=== PATIENT | male | born 1980 | race Two or more races ===

== ENCOUNTER 2018-10-23 09:28 | Day surgery (SDC) | payer BC ==
[~2018-10-23] VITALS: Ht 165.1 cm; Wt 61.2 kg
[2018-10-23] VITALS (10 sets, daily range): BP systolic 99–123; BP diastolic 59–73
[~2018-10-23 09:28] MED LIST: ALLEGRA ALLERGY60 M1 PO; FLONASE1 SPRAYS NASAL; ceFAZolin sod 1 GM in NS 55 ML IVPB ONE
[2018-10-23] MEDS ORDERED: TRUVADA1 TAB ORAL (10:04)
[2018-10-23] MEDS ORDERED: Betadine 10% Oint 30gm TOPIC ONE (10:32)
[2018-10-23] MEDS ORDERED: Lacri-Lube Opth Oint 3.5gm ONE (10:32)
[2018-10-23] MEDS ORDERED: Kenalog-40 1ml Vial ONE (10:32)
[2018-10-23] MEDS ORDERED: Cocaine HCl 4% 4ml vial TOPIC ONE (10:32)
[2018-10-23] MEDS ORDERED: Oxymetazoline 0.05% Na Spray 30ml NASAL ONE (10:33)
[2018-10-23] MEDS ORDERED: Lidocaine 1% 10mg/ml/EPI 0.01mg/ml 50ml INJ ONE ×2 (10:33→12:45)
[2018-10-23] MEDS ORDERED: Propofol 200mg/20ml IV ONE ×2 (11:06→11:08)
[2018-10-23] MEDS ORDERED: Rocuronium Bromide 50mg/5ml Inj IV ONE ×2 (11:06→12:58)
[2018-10-23] MEDS ORDERED: Midazolam 2mg/2ml Inj ONE ×2 (11:08→12:50)
[2018-10-23] MEDS ORDERED: fentaNYL 100 mcg/2 mL IV ONE ×3 (11:08→13:15)
[2018-10-23] MEDS ORDERED: Lidocaine 1% MPF 10mg/ml 5ml ONE (11:08)
[2018-10-23] MEDS ORDERED: Lidocaine 1% Plain 30 ml INJ ONE (11:17)
--- NOTE | 2018-10-23 11:40 | Anethesia Preoperative Eval ---
Anesthesia Pre-op PMH/ROS General Date of Evaluation: Oct 23, 2018 Time of Evaluation: 11:20 Anesthesiologist: Roxy Titus CRNA ASA Score: ASA 2 Mallampati Score Class I : Soft palate, uvula, fauces, pillars visible Class II: Soft palate, uvula, fauces visible Class III: Soft palate, base of uvula visible Class IV: Only hard plate visible Mallampati Classification: Class II Surgeon: Manpreet Diagnosis: deviated septum, (B) hypertrophied turbinate Surgical Procedure: Septoplasty, (B) tubinectomies, repair of left internal valve Family History: no anesthesia problems Allergies: Coded Allergies: No Known Allergies (Unverified , 10/23/18) Medications: see eMAR Patient NPO?: Yes NPO Date: Oct 23, 2018 NPO Time: 00:00 Past Medical History Cardiovascular: Denies: HTN, CAD, [place], valve dz, arrhythmia, other Pulmonary: Denies: asthma, COPD, JOHAN, other Gastrointestinal/Genitourinary: Denies: GERD, CRI, ESRD, other Neurologic/Psychiatric: Denies: dementia, CVA, depression/anxiety, TIA, other Endocrine: Reports: other - s/p parathyroidectomy, benign neck mass excision; allergic rhinitis, deviated septum; Denies: DM, hypothyroidism, steroids HEENT: Denies: cataract (L), cataract (R), glaucoma, BUCKLAND (L), BUCKLAND (R), other Hematology/Immune: Denies: anemia, DVT, bleeding disorder, other Musculoskeletal/Integumentary: Denies: OA, RA, DJD, DDD, edema, other PMH Narrative: as noted above PSxH Narrative: parathyroidectomy, neck mass excision Anesthesia Pre-op Phys. Exam Physician Exam Last Vital Signs Date Time Temp Pulse Resp B/P (MAP) Pulse Ox O2 Delivery O2 Flow Rate FiO2 10/23/18 09:56 97.9 54 18 99/59 100 Room Air Constitutional: NAD Neurologic: CN 2-12 intact Cardiovascular: RRR Respiratory: CTA Gastrointestinal: S/NT/ND Airway Exam Mallampati Score: Class II MO: full Neck: FROM TMD: > 3 FB Teeth: intact Dentures: no upper, no lower Anesthesia Pre-op A/P Labs see chart, reviewed Risk Assessment & Plan Assessment: ASA 2, ok to proceed Plan: GA Status Change Before Surgery: No Pre-Antibiotics Drug: Roxy Jimenez CRNA Oct 23, 2018 11:40
[2018-10-23] MEDS ORDERED: Hydromorphone 0.5mg/0.5ml inj IVP PRN (11:45)
--- NOTE | 2018-10-23 11:53 | Pre-Procedure Note/Attestation ---
Pre-Procedure Note/Attestation Complete Prior to Procedure Planned Procedure: not applicable Procedure Narrative: nasal obstruction unresponsive to medication Indications for Procedure Pre-Operative Diagnosis: septal deviation, bilateral hypertrophied inferior turbinates, obstructing nasal deformity, possible internal valve collapse Attestation I attest that I discussed the nature of the procedure; its benefits; risks and complications; and alternatives (and the risks and benefits of such alternatives ), prior to the procedure, with the patient (or the patient's legal hotel services sales representative). I attest that, if there was a reasonable possibility of needing a blood transfusion, the patient (or the patient's legal hotel services sales representative) was given the [facility] standardized written summary, pursuant to the Lars Brewerton Blood Safety Act ([place] Health and Safety Code # 1645, as amended). I attest that I re-evaluated the patient just prior to the surgery and that there has been no change in the patient's H&P, except as documented below: Marco Case MD Oct 23, 2018 11:53
[2018-10-23] MEDS ORDERED: Sterile Water Irrig 1000ml IRRIG ONE (12:00)
[2018-10-23] MEDS ORDERED: Neostigmine 1mg/ml 10ml Inj ONE (12:00)
[2018-10-23] MEDS ORDERED: Metoclopramide 10mg/2ml Inj ONE (12:00)
[2018-10-23] MEDS ORDERED: Dexamethasone 4mg/ml vial ONE (12:00)
[2018-10-23] MEDS ORDERED: Glycopyrrolate 0.2mg/ml 1ml Vial ONE ×2 (12:00→12:41)
[2018-10-23] MEDS ORDERED: NS Irrig 1000ml ONE (12:00)
[2018-10-23] MEDS ORDERED: LR 1000ml ONE (12:00)
--- NOTE | 2018-10-23 15:55 | Immediate Post-Op Evaluation ---
Immediate Post-Op Evalulation Immediate Post-Op Evalulation Procedure: Septoplasty, (B) turbinectomies, repair of LEFT internal valve Date of Evaluation: Oct 23, 2018 Time of Evaluation: 16:30 IV Fluids: LR 1800 ml Estimated Blood Loss: 40 ml Blood Pressure Systolic: 116 Blood Pressure Diastolic: 69 Pulse Rate: 116 Respiratory Rate: 24 O2 Sat by Pulse Oximetry: 98 Temperature (Fahrenheit): 99.4 Pain Score (1-10): 0 Nausea: No Vomiting: No Complications none Patient Status: awake, reacts, patent, extubated Hydration Status: adequate Drug: cefazolin 100 mg IV Given Within 1 Hr of Incision: Yes Time Given: 12:00 Roxy Titus CRNA Oct 23, 2018 15:55
--- NOTE | 2018-10-23 16:31 | Brief Operative Note ---
Immediate Post Operative Note Operative Note Pre-op Diagnosis: septal deviation, bilateral hypertrophied inferior turbinates, obstructing nasal deformity, possible internal valve collapse Procedure: septoplasty, bilateral inferior turbinectomies with intramural coagulation, repair of tension septum. and reconstruction of collapsed left internal valve Post-op Diagnosis: same as pre-op plus - tension septum Surgeon: Marco Case M.D. Anesthesiologist: Connie Anesthesia: MAC Specimen: yes - septum Complications: none Condition: stable Fluids: ringers lactate Estimated Blood Loss: minimal Drains: none Packing: [email or web address] Implant(s) used?: No Marco Case MD Oct 23, 2018 16:31
--- NOTE | 2018-10-23 16:42 | 48 Hour Post Anesthesia Eval ---
Post Anesthesia Evaluation Procedure: Septoplasty, (B) turbinectomies, repair of LEFT internal valve Date of Evaluation: Oct 23, 2018 Time of Evaluation: 16:41 Blood Pressure Systolic: 110 0: 73 Pulse Rate: 105 Respiratory Rate: 14 Temperature (Fahrenheit): 99.1 O2 Sat by Pulse Oximetry: 99 Airway: patent Nausea: No Vomiting: No Pain Intensity: 0 Hydration Status: adequate Cardiopulmonary Status: stable Mental Status/LOC: patient returned to baseline Follow-up Care/Observations: per ENT Post-Anesthesia Complications: None Follow-up care needed: N/A Roxy Titus CRNA Oct 23, 2018 16:42
--- NOTE | 2018-10-25 10:30 | Operative Note - Dictated ---
DATE OF OPERATION: 10/23/2018 SURGEON: Marco Case M.D. ANESTHESIOLOGIST: . Anesthesia: General PREOPERATIVE DIAGNOSES: 1. Septal deviation. 2. Bilateral hypertrophied inferior turbinates. 3. Obstructive nasal deformity. 4. Collapsed left internal valve. POSTOPERATIVE DIAGNOSES: 1. Septal deviation. 2. Bilateral hypertrophied inferior turbinates. 3. Obstructing tension septum. 4. Collapsed left internal valve. PROCEDURES: 1. Septoplasty. 2. Bilateral inferior turbinectomies with intramural coagulation. 3. Repair of obstructive tension septum deformity. 4. Repair of collapse left internal valve with rotation advancement flap. INDICATIONS FOR SURGERY: The patient is a 38-year-old male, who complains of nasal obstruction, unresponsive to medication. Examination revealed a significant tension septum causing narrowing of the nasal cavity anteriorly. Intranasally, the patient was found to have an S-shaped septal deviation with a right maxillary crest spur obstructing right nasal chamber and adjacent hypertrophied inferior turbinate. The left nasal cavity had a severe left septal deviation with the cartilaginous and bony septum overlapping a huge maxillary crest spur causing the septum to abut up against the hypertrophied left inferior turbinate. Further examination of the nasal cavity revealed collapse of the left internal valve. PROCEDURE IN DETAIL: The patient was brought to the operating room while premedicated and having received preoperative antibiotics. He was then placed in supine position on the operating room table. After the patient underwent successful endotracheal intubation, he was given intravenous sedation. The nasal cavity was sprayed with 0.25% Brian-Synephrine. Sterile Q-tip saturated with Betadine was used to sterilize the intranasal cavity. Approximately 30 mL of 1% Xylocaine with 1:100,000 epinephrine were used to inject the nasal and septal frameworks. It is of note that the patient had very thick indurated-like tissue, which made it very difficult to inject the septum. Plain gauze soaked with cocaine was used to pack the intranasal cavity. The patient was then prepped and draped in usual sterile fashion. After a suitable period of vasoconstriction, the packing was removed. A #15 blade was used to make the incision between the upper and lower lateral cartilage, carried to the septal angle and then along the left inferior aspect of the septum. Extensive undermining was performed and the periosteum was from the underlying bone. Bilateral junction tunnels was then accomplished and the upper lateral cartilage was released from the septum. A severe buckling of the the septal angle on the left side was causing significant obstruction. Releasing the upper lateral cartilage in this area allowed it to be mobilized in a more midline position. The tension septum was then taken down sharply. The left inferior septal incision was then continued and a left mucoperichondrial mucoperiosteal flap was elevated. An incision was made between the cartilage and bony septum and a right mucoperiosteal flap was elevated. The cartilagenous septum was from remaining attachments and removed from the field of operation. This allowed me to be able to view the more superior part of the nasal cavity and this portion on both sides was injected with approximately 5 mL of 1% Xylocaine with 1:100,000 epinephrine. After a suitable period of time had elapsed for vasoconstriction that portion of overriding and obstructing perpendicular plate of the ethmoid and vomer bone were incised throughout its attachments and removed from the field of operation. The obstructing left maxillary crest was then removed with mallet and chisel technique. Reexamination now revealed the septum to be in a more midline physiologic position for breathing. Reexamination still revealed the collapse of the left internal valve. The left mucoperichondrial flap was then elevated anteriorly and incision were made vertically, inferiorly and superiorly to the collapsed left internal valva. A transverse incision was made connecting these 2 vertical incisions and the entire flap was then rotated anteriorly and laterally. A relaxing incision was made in the lower aspect of the inferior mucoperichondrium and this was then elevated anteriorly and sutured to the rotated internal valve flap. Bipolar intramural coagulation of both inferior turbinates were then performed. An incision was made in the undersurface of both inferior turbinates and mucosa stripped the underlying bone. The inferior turbinates were then outfractured and a small piece of bone was removed from the pocket. Reexamination now revealed the patient had a very good bilateral nasal airway. All blood was suctioned from the nose and nasopharynx area. A 4-0 plain was used to close the septal incision as well as to splint the septum. A 4-0 plain gauze was used to approximate the incision between the upper and lower lateral cartilages. A small rent in the mucoperichondrial mucoperiosteal flap was sutured with interrupted suture of 5-0 plain. Packing consisting of Telfa coated povidone iodine was secured intranasally with a suture of 3-0 silk. An external dressing consisting of Mastisol, paper adhesive tape, and a cast were then secured in place and was pressured postoperatively and the procedure was terminated. The patient tolerated the procedure well and left the operating room in satisfactory condition. Estimated blood loss was 40 mL. Sponge and needle count were correct. Marco Case M.D. DR: CONRAD JOB#: [id number] CC: LUCIA
== END 2018-10-23 18:15 | disposition home or self-care (01) ==
LOC: SUR 09:28
DX: J34.2 Deviated nasal septum (principal); J34.3 Hypertrophy of nasal turbinates; E89.0 Postprocedural hypothyroidism
CPT/HCPCS: 30140; 30465; 30520; J1100; J2001; J2250; J2405; J2704; J2710; J2765; J3010; 94003; 94150